=== PATIENT | female | born 1985 | race Caucasian/White ===

== ENCOUNTER 2023-11-30 01:17 | Emergency (ER) | payer SELFPAY ==
[~2023-11-30] VITALS: Ht 160 cm; Wt 93.8 kg
[2023-11-30 01:22] VITALS: TEMP 97.9
[2023-11-30] MEDS ORDERED: Mag/Al Hydrox/Simeth Susp 30 ML CUP PO ONE (01:45)
[2023-11-30] MEDS ORDERED: Ondansetron 4 MG/2 ML VIAL IV ONE (01:45)
[2023-11-30 01:54] LABS: BASO % 0.4 % (0.0-2.0); EOS # 0.2 K/mm3 (0.0-0.7); EOS % 1.9 % (0.0-4.0); GRAN # 7.2 K/mm3 (1.4-6.5); GRAN % 72.2 % (42.2-75.2); HEMOGLOBIN 14.6 g/dl (12.5-16.0); LYMPH # 1.9 K/mm3 (1.2-3.4); MEAN CELL VOLUME 86 fl (80.0-100.0); MEAN CORPUSCULAR HEMOGLOBIN 29 pg (27-31); MEAN CORPUSCULAR HGB CONC 34 g/dl (33.0-37.0); MONO # 0.6 K/mm3 (0.1-0.6); MONO % 6.1 % (1.7-9.3); PLATELET COUNT 294 K/mm3 (130-400); RED BLOOD COUNT 4.98 M/mm3 (4.10-5.30); REDCELL DISTRIBUTION WIDTH-CV 12.7 % (11.5-14.5)
[2023-11-30 02:08] LABS: ALANINE AMINOTRANSFERASE 45 U/L (0-55); ALBUMIN 3.6 g/dL (3.5-5.0); ALKALINE PHOSPHATASE 60 U/L (40-150); ANION GAP 10 mmol/L (7-16); AST,SGOT 72 U/L (5-34); BILIRUBIN,TOTAL 0.5 mg/dL (0.2-1.2); BLOOD UREA NITROGEN 14 mg/dL (7-19); CALCIUM 9.3 mg/dL (8.4-10.2); CHLORIDE 105 mEq/L (98-107); CREATININE, serum 1.01 mg/dL (0.57-1.11); GLUCOSE 137 mg/dL (70-99); LIPASE 39 U/L (8-78); MAGNESIUM 1.9 mg/dL (1.6-2.6); POTASSIUM 3.9 mEq/L (3.5-4.5); SODIUM 140 mEq/L (136-145); TOTAL PROTEIN 7.1 g/dl (6.2-8.1)
[2023-11-30 02:14] LABS: TROPONIN-I < 0.010 ng/mL (0.00-0.033)
[2023-11-30 02:34] LABS: PH 7.5 (5.0-8.5); URINE APPEARANCE TURBID (CLEAR/HAZY); URINE BLOOD NEGATIVE (NEGATIVE); URINE COLOR YELLOW (YELLOW); URINE GLUCOSE NEGATIVE (NEGATIVE); URINE KETONE NEGATIVE (NEGATIVE); URINE NITRATE NEGATIVE (NEGATIVE); URINE PROTEIN(semi-quant) NEGATIVE (NEGATIVE)
[2023-11-30 02:37] LABS: COLLECTION METHOD CLEAN CATCH
[2023-11-30] MEDS ORDERED: PRILOTC PO (03:36)
[2023-11-30 03:45] VITALS: BP 100/61; PULSE 80
== END 2023-11-30 03:45 | disposition home or self-care (01) ==
LOC: COL.ER 01:17
PROVIDERS: Emergency Medicine
DX: K29.70 Gastritis, unspecified, without bleeding (principal)
CPT/HCPCS: J2405

== ENCOUNTER 2024-01-11 14:17 | Inpatient (IN) | payer SELFPAY ==
[~2024-01-11] VITALS: Ht 160 cm; Wt 90.1 kg
[~2024-01-11 14:17] MED LIST: PRILOTC PO
[2024-01-11] MEDS ORDERED: LR 1,000 ML IV ONE (17:45)
[2024-01-11] MEDS ORDERED: Ondansetron 4 MG/2 ML VIAL IV ONE (17:45)
[2024-01-11] MEDS ORDERED: Mag/Al Hydrox/Simeth Susp 30 ML CUP PO ONE (17:45)
[2024-01-11] MEDS ORDERED: Pantoprazole 40 MG in NS 10 ML IV ONE (17:45)
[2024-01-11 18:23] LABS: BASO % 0.2 % (0.0-2.0); EOS # 0.1 K/mm3 (0.0-0.7); EOS % 0.9 % (0.0-4.0); GRAN # 7.9 K/mm3 (1.4-6.5); GRAN % 76.6 % (42.2-75.2); HEMATOCRIT 42.2 % (37.0-47.0); HEMOGLOBIN 14.8 g/dl (12.5-16.0); LYMPH # 1.6 K/mm3 (1.2-3.4); LYMPH % 15.9 % (20.0-51.0); MEAN CELL VOLUME 86 fl (80.0-100.0); MEAN CORPUSCULAR HEMOGLOBIN 30 pg (27-31); MEAN CORPUSCULAR HGB CONC 35 g/dl (33.0-37.0); MEAN PLATELET VOLUME 10.1 fl (7.4-10.4); MONO # 0.6 K/mm3 (0.1-0.6); MONO % 6.1 % (1.7-9.3); PLATELET COUNT 262 K/mm3 (130-400); RED BLOOD COUNT 4.91 M/mm3 (4.10-5.30); REDCELL DISTRIBUTION WIDTH-CV 12.3 % (11.5-14.5)
[2024-01-11 18:37] LABS: ALBUMIN 3.6 g/dL (3.5-5.0); BILIRUBIN,TOTAL 0.7 mg/dL (0.2-1.2); C-REACTIVE PROTEIN 1.66 mg/dL (0.00-0.50); CALCIUM 9.4 mg/dL (8.4-10.2); CREATININE, serum 0.8 mg/dL (0.57-1.11); POTASSIUM 3.5 mEq/L (3.5-4.5); TOTAL PROTEIN 7.3 g/dl (6.2-8.1)
[2024-01-11] MEDS ORDERED: Iohexol 300 - 100 ML VIAL IV ONE (19:01)
[2024-01-11 19:20] LABS: COLLECTION METHOD CLEAN CATCH
[2024-01-11 19:45] LABS: URINE APPEARANCE CLOUDY (CLEAR/HAZY); URINE BLOOD NEGATIVE (NEGATIVE); URINE COLOR YELLOW (YELLOW); URINE GLUCOSE NEGATIVE (NEGATIVE); URINE KETONE 1+ (NEGATIVE); URINE NITRATE NEGATIVE (NEGATIVE); URINE PROTEIN(semi-quant) NEGATIVE (NEGATIVE); URINE UROBILINOGEN 0.2 E.U/dL (0.2-1.0)
[2024-01-11] MEDS ORDERED: Ondansetron 4 MG/2 ML VIAL IV PRN (20:45)
[2024-01-11] MEDS ORDERED: Morphine 4 MG/ML VIAL IV PRN (20:45)
[2024-01-11] MEDS ORDERED: LR 1,000 ML IV SCH (20:45)
[2024-01-11 20:50] VITALS: BP 116/76; PULSE 58; TEMP 97
--- NOTE | 2024-01-11 20:50 | NUR ---
PATIENT ADMITTED TO ROOM 343 BROUGHT UP IN WHEELCHAIR BY ED-RN. PATIENT IS [place] SPEAKING ONLY AND VIDEO SEED POTATO ARRANGER UTILIZED. PATIENT IS A&O X 4 AND RATES EPIGASTRIC PAIN 7/10. VS ARE:116/76BP, 58 PULSE, 97.0 ORAL TEMP, 97 % ON RA AND RR 18. MED REC COMPLETE AND PATIENT ORIENTED TO ROOM. IVF-LR 125ML/HR, AND 0.5ML IV MORPHINE ADMINISTERED. PATIENT ABDOMEN SOFT AND BOWEL SOUNDS PRESENT. NO N/V NOTED. CALL LIGHT WITHIN REACH. CALL PLACED TO HOSPITALISTRYAN FOR NICOTINE PATCH PER PROTOCOL. TORB FOR 14MG NICOTINE PATCH (DERMAL) GIVEN.
[2024-01-11 21:00] VITALS: BP_SYST 116
[2024-01-11 21:20] VITALS: BP 116/76
[2024-01-11] MEDS ORDERED: Nicotine 14 MG DAILY PATCH TD ONE (23:30)
[2024-01-11 23:45] VITALS: BP 95/53; PULSE 59; TEMP 98.3
[2024-01-12] VITALS (12 sets, daily range): BP systolic 94–103; BP diastolic 42–70; PULSE 64–96; TEMP 98.3–98.7
--- NOTE | 2024-01-12 02:28 | NUR ---
VITAL SIGNS RECHECK PATIENT HAS SOFT BP. CURRENT VS ARE 98/65 BP-MAP IS 76-PULSE 67 02 IS 92-93% ON RA. TEMP 98.5. CURRENT MEWS SCORE 98.5.
--- NOTE | 2024-01-12 02:31 | NUR ---
PATIENT HAS FAMILY MEMBER VISITING BEDSIDE, D/T LANGUAGE BARRIER AND PATIENT ANXIETY, VISITOR ALLOWED TO STAY.
--- NOTE | 2024-01-12 05:04 | NUR ---
USING VIDEO CRACKER DOUGH MIXER, PATIENT EDUCATION WAS PROVIDED ON SCDs, SIGNS AND SYMPTOMS OF SEPSIS, PERITONITIS AND VISITING HOURS. PATIENT WISHES TO HAVE NIECE STAY BEDSIDE DURING COURSE OF HOSPITAL STAY. ALTHOUGH PATIENT'S NIECE, NICCI, IS IRANIAN SPEAKING ONLY WELL, ASSESSMENT REVEALS CULTURE NEED EVIDENT FOR HER TO REMAIN BEDSIDE. ADVISED THAT THIS MAY BE POSSIBLE AND WILL PASS INFO ONTO DAYSHIFT CHARGE NURSE. PATIENT CURRENTLY DENIES EPIGASTRIC PAIN AND STATES NO NEEDS AT THIS TIME VSS.
[2024-01-12] MEDS ORDERED: cefTRIAXone 2 G in Water For Injection,Sterile 20 ML IV SCH (07:00)
[2024-01-12] MEDS ORDERED: Indocyanine Green 6.25 MG in Water For Injection,Sterile 1.25 ML IV SCH (08:00)
[2024-01-12] MEDS ORDERED: hydrALAZINE 20 MG/ML 1 ML VIAL IV PRN ×2 (10:15→12:00)
[2024-01-12] MEDS ORDERED: Ondansetron 4 MG/2 ML VIAL IV PRN ×3 (10:15→13:00)
[2024-01-12] MEDS ORDERED: LR 1,000 ML IV SCH (10:15)
[2024-01-12] MEDS ORDERED: HYDROmorphone 1 MG/1 ML SYRINGE [PACU/SDC ONLY] IV PRN ×2 (10:15→12:00)
[2024-01-12] MEDS ORDERED: fentaNYL 50 MCG/ML 1 ML SYRINGE/VIAL [PACU/SDC ONLY] IV PRN ×2 (10:15→12:00)
[2024-01-12] MEDS ORDERED: Scopolamine 1 MG Delivered 3-Day PATCH TD SCH (10:15)
[2024-01-12] MEDS ORDERED: Meclizine 25 MG TAB PO SCH (10:15)
--- NOTE | 2024-01-12 10:32 | NUR ---
GERMAN and GERMAN student Cindy met with patient and patients friend Rupali (p# [phone]) at bedside to discuss discharge planning. For discussion, SW utilized the trasnlator on the ipad (ID [id number]). Patient states that she lives in [place] and that she does not have a PCP at this time. Patient relayed that she uses the pharmacy at [facility] and has no difficulty accessing or affording medications. Patient stated that she uses no DME, has no difficulty with ADLs, and provides her own transportation. Patient has no DPOA, and declined any additional information for advanced directives at this time. Patient denies having any concerns regarding discharge at this time. SW to provide PCP list. Plan: D/C Home.
[2024-01-12] MEDS ORDERED: fentaNYL 50 MCG/ML 2 ML VIAL ONE ×3 (10:39→12:52)
[2024-01-12] MEDS ORDERED: Succinylcholine PF 200 MG/10 ML SYRINGE IV ONE (10:39)
[2024-01-12] MEDS ORDERED: Midazolam 2 MG/2 ML VIAL ONE (10:39)
[2024-01-12] MEDS ORDERED: Rocuronium 50 MG/5 ML Multi-Dose VIAL ONE (10:39)
[2024-01-12] MEDS ORDERED: Ondansetron 4 MG/2 ML VIAL ONE (10:40)
[2024-01-12] MEDS ORDERED: NS 10 ML IV ONE (10:40)
[2024-01-12] MEDS ORDERED: Lidocaine PF 2% (20 MG/ML) 5 ML VIAL ONE (10:40)
[2024-01-12] MEDS ORDERED: Glycopyrrolate 0.2 MG/ML 1 ML VIAL ONE (10:40)
[2024-01-12] MEDS ORDERED: Ketorolac 30 MG/ML VIAL ONE (10:40)
--- NOTE | 2024-01-12 11:32 | NUR ---
SHIFT ASSESSMENT COMPLETE. VSS. PATIENT RESTING IN BED WITH FAMILY MEMBER AT BEDSIDE. PATIENT IS [place] SPEAKING ONLY UROLOGIST PHYSICIAN USED TO COMMUNICATE. PATIENT STATES PAIN IS MINIMAL ABOUT A 2/10. NO PAIN MEDS GIVEN AT THIS TIME. SURGERY CONSENT FILLED OUT AND PATIENT SIGNED. ALL MORNING MEDS GIVEN ORDERED. PATIENT STATES NEEDS AT THIS TIME. PATIENT NPO STATUS SINCE MIDNIGHT. CALL LIGHT IN REACH
[2024-01-12] MEDS ORDERED: Topical Skin Adhesive 1 EACH (1 ML) TOP ONE (11:47)
[2024-01-12] MEDS ORDERED: Meperidine 50 MG/ML 1 ML VIAL IV PRN (12:00)
[2024-01-12] MEDS ORDERED: NORCO 325 MG-51 TAB PO (13:00)
[2024-01-12] MEDS ORDERED: Ibuprofen 600 MG TAB PO PRN (13:00)
[2024-01-12] MEDS ORDERED: Acetaminophen 325 MG TAB PO PRN (13:00)
--- NOTE | 2024-01-12 13:45 | NUR ---
PATIENT BACK IN ROOM. VSS. NO COMPLAINTS. FURNACE HAND USED TO COMMUNICATE. NO OTHER NEEDS CALL LIGHT IN REACH.
== END 2024-01-12 16:38 | disposition home or self-care (01) | DRG 418 ==
LOC: COL.ER 14:17 → SURG 20:21
PROVIDERS: Family Medicine; ADMIT Surgery
PROC: 8E0W4CZ Robotic Assisted Procedure of Trunk Region, Percutaneous Endoscopic Approach (ICD-10-PCS; 2024-01-12)
PROC: 0FT44ZZ Resection of Gallbladder, Percutaneous Endoscopic Approach (ICD-10-PCS; principal; 2024-01-12 11:00)
DX: K80.00 Calculus of gallbladder with acute cholecystitis without obstruction (principal); K82.1 Hydrops of gallbladder; Z79.899 Other long term (current) drug therapy; F17.210 Nicotine dependence, cigarettes, uncomplicated
CPT/HCPCS: J0690; J0696; J1885; J2250; J2270; J2405; J2470; J2543; J2704; J3010; J7120; Q9967